=== PATIENT | male | born 1960 | race Two or more races ===

== ENCOUNTER 2017-03-10 14:43 | Emergency (ER) | payer OTHER ==
[~2017-03-10 14:43] MED LIST: CIP500 PO; CLE150 PO; COL100 PO; ECO81 PO; GLIPIZIDE PO; GLU500 PO; GLU5XL PO; HYDROCODONE/APAP; KEF500 PO; LAC PO; MOT800 PO; NOR10T PO; ZOC20 PO
[2017-03-10 14:47] VITALS: BP 129/92
== END 2017-03-10 15:19 | disposition home or self-care (01) ==
LOC: ED 14:43
DX: L03.116 Cellulitis of left lower limb (principal); E11.9 Type 2 diabetes mellitus without complications; Z79.899 Other long term (current) drug therapy

== ENCOUNTER 2018-01-13 17:17 | Emergency (ER) | payer OTHER ==
[~2018-01-13] VITALS: Ht 165.1 cm; Wt 93.9 kg
[2018-01-13 17:19] VITALS: Ht 165.1 cm; Wt 93.9 kg
[2018-01-13 18:26] LABS: BASOPHIL % 0.8 % (0-2); PLATELET COUNT 167 x10^3mcL (130-400); RED CELL DISTRIBUTION WIDTH 14.1 % (11.5-14.5)
[2018-01-13 18:34] LABS: ALBUMIN 3.5 g/dL (3.4-5.0); ALKALINE PHOSPHATASE 48 U/L (46-116); ALT/SGPT 36 U/L (16-63); AST/SGOT 20 U/L (15-37); BILIRUBIN TOTAL 0.5 mg/dL (0.20-1.00); CALCIUM 8.3 mg/dL (8.5-10.1); CARBON DIOXIDE 28.4 mmol/L (21-32); CHOLESTEROL 144 mg/dL (<200); CREATININE SERUM 0.8 mg/dL (0.7-1.3); GFR1 > 60 mL/min; GLUCOSE SERUM 112 mg/dL (74-106); HDL CHOLESTEROL 36 mg/dL (40-60); PHOSPHOROUS 4.1 mg/dL (2.5-4.9); TOTAL PROTEIN, SERUM 7.6 g/dL (6.4-8.2); URIC ACID 5.6 mg/dL (3.5-7.2)
[2018-01-13 18:51] LABS: CHLORIDE SERUM 103 mmol/L (98-107); POTASSIUM SERUM 4.5 mmol/L (3.5-5.1); SODIUM SERUM 139 mmol/L (136-145)
[2018-01-13 19:38] VITALS: BP 136/86
== END 2018-01-13 19:38 | disposition home or self-care (01) ==
LOC: ED 17:17
PROVIDERS: Emergency Medicine
DX: R53.1 Weakness (principal); R07.9 Chest pain, unspecified; E11.9 Type 2 diabetes mellitus without complications; N28.9 Disorder of kidney and ureter, unspecified
CPT/HCPCS: 36415; 83880; Q0092

== ENCOUNTER 2018-04-20 18:35 | Emergency (ER) | payer OTHER ==
[~2018-04-20] VITALS: Ht 165.1 cm; Wt 96.6 kg
[2018-04-20 18:49] VITALS: Ht 165.1 cm; Wt 96.6 kg
[2018-04-20 19:37] LABS: BASOPHIL % 0.7 % (0-2); PLATELET COUNT 172 x10^3mcL (130-400)
[2018-04-20 19:38] LABS: RED CELL DISTRIBUTION WIDTH 14.6 % (11.5-14.5)
[2018-04-20 19:43] LABS: CALCIUM 8.4 mg/dL (8.5-10.1); CARBON DIOXIDE 27.1 mmol/L (21-32); CHLORIDE SERUM 103 mmol/L (98-107); CREATININE SERUM 0.9 mg/dL (0.7-1.3); GFR1 > 60 mL/min; GLUCOSE SERUM 127 mg/dL (74-106); POTASSIUM SERUM 3.9 mmol/L (3.5-5.1); SODIUM SERUM 137 mmol/L (136-145)
[2018-04-20 19:47] LABS: ALBUMIN 3.6 g/dL (3.4-5.0); ALKALINE PHOSPHATASE 43 U/L (46-116); ALT/SGPT 34 U/L (16-63); AST/SGOT 19 U/L (15-37); BILIRUBIN TOTAL 0.5 mg/dL (0.20-1.00); TOTAL PROTEIN, SERUM 7.7 g/dL (6.4-8.2)
[2018-04-20 21:06] VITALS: BP 144/90
== END 2018-04-20 21:07 | disposition home or self-care (01) ==
LOC: ED 18:35
PROVIDERS: Emergency Medicine
DX: R07.89 Other chest pain (principal); E11.9 Type 2 diabetes mellitus without complications; E78.5 Hyperlipidemia, unspecified
CPT/HCPCS: 85378; J1885; Q0092

== ENCOUNTER 2018-07-18 11:17 | Emergency (ER) | payer OTHER ==
[~2018-07-18] VITALS: Ht 165.1 cm; Wt 97.7 kg
[2018-07-18 11:43] VITALS: BP 148/92; Ht 165.1 cm; Wt 97.7 kg
== END 2018-07-18 13:07 | disposition home or self-care (01) ==
LOC: ED 11:17
DX: S39.012A Strain of muscle, fascia and tendon of lower back, initial encounter (principal); E11.9 Type 2 diabetes mellitus without complications; E78.5 Hyperlipidemia, unspecified; X58.XXXA Exposure to other specified factors, initial encounter; Y93.89 Activity, other specified; Y92.89 Other specified places as the place of occurrence of the external cause; Y99.8 Other external cause status
CPT/HCPCS: J1885